=== PATIENT | male | born 1965 | race Caucasian/White ===

== ENCOUNTER 2020-03-03 13:11 | Emergency (ER) | payer MEDICARE, SELFPAY ==
[2020-03-03 13:32] VITALS: BP 141/93; PULSE 102; RESP 20; O2SAT 98; BMI 32.5
--- NOTE | 2020-03-03 13:38 | HMH.EDUTC ---
[facility] [place] Disposition Clinical Impression: Contact dermatitis Qualifiers: Contact dermatitis type: unspecified Contact dermatitis trigger: unspecified trigger Qualified Code(s): L25.9 - Unspecified contact dermatitis, unspecified cause Disposition: Home, Self-Care Condition on Discharge: Good Instructions: Contact Dermatitis, DI for Contact Dermatitis Additional Instructions: Avoid contact with the offending substance if you can identify it. Don't start the oral steroids until tomorrow. Don't put the topical steroids (triamcinolone) on your face or your groin. Follow up with your regular doctor. GO TO THE ER FOR ANY WORSENING SYMPTOMS OR CONCERNS Prescriptions: methylPREDNISolone [Medrol] 4 mg PO DIRECTED 6 Days #21 [email or web address] Transmission Status: Received by [facility] Triamcinolone Acetonide 1 applicatio TP TIDP PRN 7 Days #1 tube PRN Reason: Itching Transmission Status: Received by [facility] Referrals: Provider,Referral, MD [Primary Care Provider] - Time of Disposition: 13:59 Medical Decision Making - Medical Records Medical records reviewed: No: I reviewed the patient's medical records. - [place] Inquiry Pt receiving controlled substance: No Vital Signs: 03/03/20 13:32 03/03/20 14:06 Temperature 98.1 F Temperature Source Oral Pulse Rate 102 H Pulse Rate [Radial] 102 H Respiratory Rate 20 20 Blood Pressure 141/93 H Blood Pressure [Right Arm] 141/93 H Blood Pressure Mean [Right Arm] 109 Blood Pressure Source Automatic Cuff Blood Pressure Source [Right Arm] Automatic Cuff Blood Pressure Position Sitting Blood Pressure Position [Right Arm] Sitting 02 Sat by Pulse Oximetry 98 Oxygen Delivery Method Room Air Room Air Orders (Tests/Meds): ED MEDICATIONS Discontinued Medications Generic Name Dose Route Start Last Admin Trade Name Freq PRN Reason Stop Dose Admin Methylprednisolone Sodium Succinate 125 mg 03/03/20 13:43 03/03/20 13:47 Solu-Medrol 125mg/2ml Vial IM 03/03/20 13:44 125 mg ONCE ONE Administration [facility] [place] HPI - General Stated complaint: Swelling of both hands, rash on both arms Time Seen by Provider: 03/03/20 13:38 Mode of Arrival: Ambulatory Source of Information: Patient Limitations: No Limitations Description of Symptoms (Recalled from Triage Doc. by RN): Mowed the yard 4 days ago and now has swelling and rash on bilateral arms HEENT Symptoms (Recalled from RN notes): No Resp Symptoms (Recalled from RN notes): No Skin Symptoms (Recalled from RN notes): Yes MS Symptoms (Recalled from RN notes): No Functional Status (Recalled from RN notes): wnl - History of Present Illness Provider Complaint: He states that around 4 days ago, after mowing his yard and working outside all day, his bilateral arms began to itch and break out. He now has a very itchy rash on both his arms. It is worse on the dorsal aspect of his arms. The rash ends where his t-shirt arms begin. There is no rash on his face or elsewhere. He states that he feels fine other than he is drove crazy by the rash. He denies any fever or chills. - Related Data Previous Rx's Medication Instructions Recorded Naproxen [Naproxen 500mg tab] 500 mg PO BID #20 tab 10/26/18 Azithromycin [Zithromax 500mg Tab 500 mg PO DAILY #3 tab 12/31/18 Tri-Femi] Triamcinolone Acetonide 1 applicatio TP TIDP PRN 7 Days #1 03/03/20 tube methylPREDNISolone [Medrol] 4 mg PO DIRECTED 6 Days #21 03/03/20 tab.[email or web address] Allergies Allergy/AdvReac Type Severity Reaction Status Date / Time No Known Allergies Allergy Verified 10/26/18 14:28 - Worker's Comp Is this a Worker's Comp case?: No [facility] History - Hepatitis A Screen Drug use history?: No High risk sexual behaviors?: No History of sexually transmitted infection?: No Currently employed?: No Childcare worker?: No Do you have indoor plumbing?: Yes Do you have electricity?: Yes Attestation statem
[2020-03-03 14:06] VITALS: BP 141/93; PULSE 102; RESP 20; TEMP 36.7; O2SAT 98
== END 2020-03-03 14:07 | disposition home or self-care (01) ==
PROVIDERS: Emergency Provider Nurse Practitioner Family
DX: L25.9 Unspecified contact dermatitis, unspecified cause (principal); F17.210 Nicotine dependence, cigarettes, uncomplicated; F12.10 Cannabis abuse, uncomplicated
CPT/HCPCS: G0463; 96372; 99201

== ENCOUNTER 2022-08-09 17:11 | Emergency (ER) | payer MEDICARE, SELFPAY ==
[2022-08-09 17:30] VITALS: BP 143/96; PULSE 76; RESP 18; TEMP 36.7; O2SAT 98; BMI 26.9
--- NOTE | 2022-08-09 17:56 | EXP.UTC ---
Discharge Plan Disposition Patient Disposition: Home, Self-Care Condition: Good Prescriptions Prescriptions: New amoxicillin-pot clavulanate [Augmentin] 500-125 mg tablet 1 tab PO BID Qty: 20 0RF mupirocin 2 % ointment 1 applic topical BID Qty: 22 0RF amoxicillin-pot clavulanate [Augmentin] 500-125 mg tablet 1 tab PO BID 7 Days Qty: 14 0RF No Action triamcinolone acetonide 15 GM cream 1 applicatio TP TIDP PRN (Reason: Itching) 7 Days Qty: 1 2RF Rx Instructions: 0.025% methylprednisolone 4 MG tablets,dose pack 4 mg PO DIRECTED 6 Days Qty: 21 0RF naproxen 500 MG tablet 500 mg PO BID Qty: 20 0RF azithromycin 500 MG tablet 500 mg PO DAILY Qty: 3 0RF Referrals Follow up/Referrals: Provider,Referral, MD [Primary Care Provider] - See instructions Activity Restrictions/Add. Instructions Additional Instructions/Restrictions: keep wounds clean and dry follow up with pcp follow up with health dept and campaign coordinator Clinical Impressions Clinical Impression: Dog bite Instructions Patient Instructions: DI for Dog Bite Discharge ED Provider: Patria ([facility])Ella [facility] [place] H[place] General Stated complaint: AO 08/08 bite on hands Mode of Arrival: Ambulatory Source of Information: Patient Limitations: No Limitations Time Seen by Provider: 08/09/22 17:56 Description of Symptoms (Recalled from Triage Doc. by RN): PATIENT C/O DOG BITE TO RIGHT MIDDLE AND RING FINGER THAT HAPPENED LAST NIGHT. NOT UP TO DATE ON TDAP HEENT Symptoms (Recalled from RN notes): No Resp Symptoms (Recalled from RN notes): No Skin Symptoms (Recalled from RN notes): Yes MS Symptoms (Recalled from RN notes): No Functional Status (Recalled from RN notes): WNL History of Present Illness Provider Complaint: 57 yr old male presents for dog bite to hands last night from a stray dog. pt states the dog ran off last night but then returned today and was not aggressive today. states last pm the dog was trying to fight with his dogs. also having left shoulder pain from falling trying to separate the dogs Related Data Previous Rx's Medication Instructions Recorded naproxen 500 mg tablet 500 mg PO BID #20 tabs 10/26/18 azithromycin 500 mg tablet 500 mg PO DAILY #3 tabs 12/31/18 methylprednisolone 4 mg tablets in 4 mg PO DIRECTED 6 days ##21 03/03/20 a dose pack triamcinolone acetonide 0.025 % 1 applicatio TP TIDP PRN Itching 7 03/03/20 topical cream days #1 tube amoxicillin 500 mg-potassium 1 tab PO BID #20 tabs 08/09/22 clavulanate 125 mg tablet (Augmentin) amoxicillin 500 mg-potassium 1 tab PO BID 7 days #14 tabs 08/09/22 clavulanate 125 mg tablet (Augmentin) mupirocin 2 % topical ointment 1 applic topical BID #22 grams 08/09/22 Allergies Allergy/AdvReac Type Severity Reaction Status Date / Time peanut Allergy Verified 08/09/22 17:43 Worker's Comp Is this a Worker's Comp case?: [facility] Dis[facility]: The information contained in this section may have been updated after the patient was seen, as this information can be updated by other users. Social History , [employer]) Smoking Status: Current every day smoker tobacco type: cigarettes packs per day: 1 second hand exposure: Yes alcohol intake: never substance use type: marijuana current occupational status: employed Travel in the last 8 weeks: None household members: significant other ROS Obtained: Yes All systems reviewed & no additional complaints except as documented Constitutional Constitutional: Reports system reviewed and no additional complaints, except as documented and Reports as per HPI Eyes Eyes: Reports system reviewed and no additional complaints, except as documented ENT Ears, Nose, Mouth, and Throat: Reports system reviewed and no additional complaints, except as documented Cardiovascular Cardiovascular: Reports system reviewed and no additional complaints,
[2022-08-09 18:54] VITALS: BP 143/96; PULSE 76; RESP 18; TEMP 36.7; O2SAT 98
== END 2022-08-09 19:00 | disposition home or self-care (01) ==
PROVIDERS: Emergency Provider Nurse Practitioner Family
DX: S61.452A Open bite of left hand, initial encounter (principal); S61.451A Open bite of right hand, initial encounter; W54.0XXA Bitten by dog, initial encounter
CPT/HCPCS: 90471; 90715; 99212; G0463